=== PATIENT | female | born 1980 | race Caucasian/White ===

== ENCOUNTER 2018-04-08 15:43 | Emergency (ER) | payer SELFPAY ==
[~2018-04-08] VITALS: Ht 160 cm; Wt 131.5 kg
[2018-04-08 15:43] VITALS: BP_SYST 149
[2018-04-08] MEDS ORDERED: DIPHENHYDRAMINE INJ 50 MG/ML VIAL IVP ONE (16:15)
[2018-04-08] MEDS ORDERED: KETOROLAC TROMETHAMINE 30 MG VIAL IVP ONE (16:15)
[2018-04-08] MEDS ORDERED: FAMOTIDINE PF 20 MG/2 ML VIAL IVP ONE (16:15)
[2018-04-08] MEDS ORDERED: NACL 0.9% 1,000 ML IV ONE (16:15)
[2018-04-08] MEDS ORDERED: EPINEPHrine 1 MG/ML AMP SUBCUT ONE (16:15)
[2018-04-08] MEDS ORDERED: methylPREDNISolone SOD SUCC/PF 62.5 MG/ML VIAL IVP ONE (16:15)
[2018-04-08 18:25] VITALS: BP_SYST 153
== END 2018-04-08 18:25 | disposition home or self-care (01) ==
LOC: SED 15:43
DX: T78.40XA Allergy, unspecified, initial encounter (principal); M54.32 Sciatica, left side; R03.0 Elevated blood-pressure reading, without diagnosis of hypertension; Z88.6 Allergy status to analgesic agent; X58.XXXA Exposure to other specified factors, initial encounter
CPT/HCPCS: 96372; 96374; 96375; 99284; J0171; J1200; J1885; J2930; J3490; J7030

== ENCOUNTER 2018-10-23 20:14 | Emergency (ER) | payer MEDICAID ==
[~2018-10-23] VITALS: Ht 160 cm; Wt 129.3 kg
[2018-10-23 20:25] VITALS: BP_SYST 161
[2018-10-23] MEDS ORDERED: KETOROLAC TROMETHAMINE 60 MG/2 ML VIAL IM ONE (22:00)
[2018-10-23] MEDS ORDERED: METHOCARBAMOL 1000 MG/10 ML VIAL IM ONE (22:00)
[2018-10-23 23:55] VITALS: BP_SYST 140
== END 2018-10-23 23:55 | disposition home or self-care (01) ==
LOC: SED 20:14
DX: S39.012A Strain of muscle, fascia and tendon of lower back, initial encounter (principal); Z88.6 Allergy status to analgesic agent; W19.XXXA Unspecified fall, initial encounter; Y93.39 Activity, other involving climbing, rappelling and jumping off; Y92.89 Other specified places as the place of occurrence of the external cause; Y99.8 Other external cause status
CPT/HCPCS: 81025; 96372; 99283; J1885; J2800

== ENCOUNTER 2020-08-30 12:42 | Emergency (ER) | payer MEDICAID ==
[~2020-08-30] VITALS: Ht 160 cm; Wt 123.4 kg
[2020-08-30 12:42] VITALS: BP_SYST 186
[2020-08-30] MEDS: hydrALAZINE HCL 20 MG/ML VIAL IVP ONE ×2 (13:30→13:58)
[2020-08-30] MEDS: ENALAPRILAT DIHYDRATE 1.25 MG/ML VIAL IVP ONE (13:31)
[2020-08-30 13:52] LABS: BASOPHILS # (AUTO) 0.1 K/uL (0.0-0.2); BASOPHILS % (AUTO) 0.8 % (0.0-2.0); CALCIUM 9.2 mg/dL (8.4-11.0); CREATININE 0.84 mg/dL (0.55-1.30); EOSINOPHILS # (AUTO) 0.2 K/uL (0.0-0.4); EOSINOPHILS % (AUTO) 1.6 % (0.0-4.0); HEMATOCRIT 43.9 % (36-48); HEMOGLOBIN 14.3 g/dL (12.0-16.0); LYMPHOCYTES # (AUTO) 2.2 K/uL (1.0-5.5); LYMPHOCYTES % (AUTO) 19.5 % (20.5-51.5); MEAN CORPUSCULAR HEMOGLOBIN 27 pg (27-31); MEAN CORPUSCULAR HGB CONC 33 % (32-36); MEAN CORPUSCULAR VOLUME 83 fL (79.0-98.0); MONOCYTES # (AUTO) 0.6 K/uL (0.0-1.0); MONOCYTES % (AUTO) 5.2 % (1.7-9.3); NEUTROPHILS # (AUTO) 8.3 K/uL (1.8-7.7); NEUTROPHILS % (AUTO) 72.9 % (40.0-70.0); PLATELET COUNT (AUTO) 370 K/uL (130-430); POTASSIUM 3.7 mmol/L (3.5-5.1); RED CELL DISTRIBUTION WIDTH 14.4 % (9.0-15.0); WHITE BLOOD COUNT (AUTO) 11.4 K/uL (4.8-10.8)
[2020-08-30] MEDS: LORazepam 2 MG/ML VIAL IVP ONE (13:57)
[2020-08-30 13:58] LABS: TOTAL BILIRUBIN 0.8 mg/dL (0.0-1.0)
[2020-08-30] MEDS: LABETALOL 100 MG/ 20ML VIAL IVP ONE (15:20)
[2020-08-30 16:11] VITALS: BP_SYST 135
== END 2020-08-30 16:11 | disposition home or self-care (01) ==
LOC: SED 12:42
DX: G43.909 Migraine, unspecified, not intractable, without status migrainosus (principal); I10 Essential (primary) hypertension; Z88.6 Allergy status to analgesic agent
CPT/HCPCS: 36415; 80053; 83880; 84484; 85025; 85379; 93005; 96374; 96375; 99285

== ENCOUNTER 2024-04-23 18:03 | Emergency (ER) | payer MEDICAID ==
[~2024-04-23] VITALS: Ht 160 cm; Wt 99.8 kg
[2024-04-23 18:19] VITALS: BP_SYST 117; PULSE 88; RESP 18; TEMP 97.8; O2SAT 98
[2024-04-23] MEDS ORDERED: HYDC1% TP (20:07)
[2024-04-23] MEDS ORDERED: AUG875 PO (20:07)
[2024-04-23] MEDS: KETOROLAC TROMETHAMINE 30 MG VIAL IM ONE (20:13)
== END 2024-04-23 20:25 | disposition home or self-care (01) ==
LOC: SED 18:03
DX: T20.60XA Corrosion of second degree of head, face, and neck, unspecified site, initial encounter (principal); R23.8 Other skin changes; Z88.6 Allergy status to analgesic agent; I10 Essential (primary) hypertension; Y93.89 Activity, other specified; Y92.89 Other specified places as the place of occurrence of the external cause; Y99.8 Other external cause status
CPT/HCPCS: 99283; 96372; J1885